=== PATIENT | male | born 2000 | race Caucasian/White ===

== ENCOUNTER 2020-06-07 12:58 | Outpatient (CLI) | payer OTHER | END 2020-06-07 12:59 | disposition home or self-care (01) | LOC: BICCT 12:58 | PROVIDERS: ATTEND Orthopaedic Surgery | DX: S92.144A Nondisplaced dome fracture of right talus, initial encounter for closed fracture (principal); S82.891A Other fracture of right lower leg, initial encounter for closed fracture; M79.89 Other specified soft tissue disorders ==